=== PATIENT | female | born 1995 | race Caucasian/White ===

== ENCOUNTER 2023-12-08 11:26 | Emergency (ER) | payer SELFPAY ==
[2023-12-08] MEDS ORDERED: Ibuprofen 200 MG TAB ONE (12:10)
[2023-12-08] MEDS ORDERED: Lidocaine 1% w/Epinephrine 1:200K 30 ML VIAL ONE (12:10)
[2023-12-08] MEDS ORDERED: Boostrix 0.5 ML (Tdap) VIAL (>/=7 yrs of age) ONE (12:10)
[2023-12-08] MEDS ORDERED: Bacitracin 1 PK ONE (13:00)
== END 2023-12-08 13:15 | disposition home or self-care (01) ==
LOC: CSHERS 11:26
DX: S42.131A Displaced fracture of coracoid process, right shoulder, initial encounter for closed fracture (principal); S51.011A Laceration without foreign body of right elbow, initial encounter; S20.219A Contusion of unspecified front wall of thorax, initial encounter; E11.9 Type 2 diabetes mellitus without complications; I10 Essential (primary) hypertension; V00.838A Other accident with motorized mobility scooter, initial encounter; Z23 Encounter for immunization
CPT/HCPCS: 12002; 71045; 90471; 90715; 93005